=== PATIENT | female | born 1990 | race Caucasian/White ===

== ENCOUNTER 2017-04-05 19:28 | Inpatient (IN) | payer OTHER ==
[2017-04-05] VITALS (8 sets, daily range): BP systolic 111–126; BP diastolic 56–76; PULSE 76–96; TEMP 97.7–98.1
[~2017-04-05] VITALS: Ht 172.7 cm; Wt 81.4 kg
[~2017-04-05 19:28] MED LIST: CLARITIN 1010 MG/TAB PO; MOTRIN 800800 MG/TAB PO; PERCOCET 325 MG1 TA2 PO; PRENATAL1 TA7 PO
[2017-04-05 22:27] LABS: BASO % 0.3 % (0.0-2.0); EOS % 0.1 % (0-4.0); GRAN # 10.1 (1.4-6.5); GRAN % 72.4 % (42.2-75.2); HEMATOCRIT 38.5 % (37.0-47.0); HEMOGLOBIN 13.1 g/dl (12.5-16.0); LYMPH # 2.8 (1.2-3.4); LYMPH % 19.7 % (20.0-51.0); MEAN CELL VOLUME 93 fl (80.0-100.0); MEAN CORPUSCULAR HEMOGLOBIN 32 pg (27.0-31.0); MEAN CORPUSCULAR HGB CONC 34 g/dl (33.0-37.0); MEAN PLATELET VOLUME 11.6 fl (7.4-10.4); PLATELET COUNT 213 K/mm3 (130-400); RED BLOOD COUNT 4.16 M/mm3 (4.10-5.30); REDCELL DISTRIBUTION WIDTH-CV 12.7 % (11.5-14.5)
[2017-04-06] VITALS (17 sets, daily range): BP systolic 87–122; BP diastolic 48–71; PULSE 65–121; TEMP 97.4–98.9
[2017-04-06] MEDS ORDERED: PERCOCET 325 MG1 TA2 PO (08:39)
[2017-04-06] MEDS ORDERED: IBU600 MG PO (08:39)
[2017-04-07 09:00] VITALS: BP 118/70; PULSE 60; TEMP 97.6
== END 2017-04-07 14:05 | disposition home or self-care (01) | DRG 775 ==
LOC: LDRO 19:28 → LDR 21:55 → OB 21:55
PROVIDERS: Obstetrics & Gynecology
PROC: 10E0XZZ Delivery of Products of Conception, External Approach (ICD-10-PCS; principal; 2017-04-06)
DX: O80 Encounter for full-term uncomplicated delivery (principal); Z3A.38 38 weeks gestation of pregnancy; Z37.0 Single live birth
CPT/HCPCS: J2590; J2795; J7120

== ENCOUNTER → 2017-04-11 | Outpatient (CLI) | payer OTHER ==
[~2017-04-11] MED LIST changes: +IBU600 MG PO
== END ==
LOC: OLC 10:18
DX: Z39.1 Encounter for care and examination of lactating mother (principal); Z71.89 Other specified counseling